=== PATIENT | female | born 1995 | race Caucasian/White ===

== ENCOUNTER 2017-04-06 23:18 | Emergency (ER) | payer MEDICAID, OTHER ==
[~2017-04-06] VITALS: Ht 172.7 cm; Wt 102.1 kg
[2017-04-06 23:34] VITALS: BP 137/75
[2017-04-07] MEDS ORDERED: OXYC5TAB92 GT (00:06)
[2017-04-07] MEDS ORDERED: KETOROLAC 60 MG/2 ML VIAL IM ONE (01:50)
[2017-04-07 02:24] VITALS: BP 127/84
== END 2017-04-07 02:24 | disposition home or self-care (01) ==
LOC: MED 23:18
DX: N39.0 Urinary tract infection, site not specified (principal); Z87.442 Personal history of urinary calculi; Z88.0 Allergy status to penicillin; Z88.1 Allergy status to other antibiotic agents; Z79.899 Other long term (current) drug therapy
CPT/HCPCS: 81002; 81025; 96372; 99283; J1885

== ENCOUNTER 2019-07-23 20:59 | Inpatient (IN) | payer MEDICAID, OTHER ==
[~2019-07-23] VITALS: Ht 170.2 cm; Wt 106.1 kg
[~2019-07-23 20:59] MED LIST: [UNRECOGNIZED DRUG - CODE] GT
[2019-07-23 21:37] VITALS: BP 140/69
--- NOTE | 2019-07-23 21:47 | NUR ---
PT AMBULATED TO LOBBY. URINE SPECIMINE PROVIDED.
--- NOTE | 2019-07-23 23:03 | NUR ---
PT AMBULATED TO BED #12
[2019-07-23] MEDS ORDERED: NACL 0.9% 1,000 ML IV ONE (23:20)
[2019-07-23] MEDS ORDERED: MORPHINE SULFATE 4 MG/ML SYR IVP ONE (23:20)
[2019-07-23] MEDS ORDERED: ONDANSETRON 4 MG/2 ML VIAL IVP ONE (23:20)
--- NOTE | 2019-07-23 23:30 | NUR ---
24 Y/O FEMALE PRESENTS TO ED, C/O ABDOMINAL PAIN 03/31. PT STATES BEING DX WITH GALLSTONES 3 MONTHS AGO. PAIN IS INTERMITTENT, WORSENING TODAY; DOES NOT RADIATE. PT FINISHED RX NORCO. PT C/O NAUSEA, NO VOMITING. DENIES DIARRHEA/CONSTIPATION. BS ACTIVE X4 QUADRANTS. ABDOMEN SOFT AND NONTENDER. PT VSS. ERDM AWARE. WILL CONTINUE TO MONITOR.
[2019-07-24 00:11] LABS: BASOPHILS % (AUTO) 0.6 % (0.0-2.0); EOSINOPHILS # (AUTO) 0.1 K/uL (0-0.4); EOSINOPHILS % (AUTO) 2.1 % (0.0-4.0); HEMATOCRIT 38.4 % (36-48); HEMOGLOBIN 12.6 g/dL (12.0-16.0); LYMPHOCYTES # (AUTO) 1.5 K/uL (2.5-16.5); LYMPHOCYTES % (AUTO) 24.8 % (20.5-51.1); MEAN CORPUSCULAR HEMOGLOBIN 26 pg (27-31); MEAN CORPUSCULAR HGB CONC 33 g/dL (33-37); MEAN CORPUSCULAR VOLUME 79.9 fL (80-94); MONOCYTES # (AUTO) 0.5 K/uL (0.8-1.0); MONOCYTES % (AUTO) 8.3 % (1.7-9.3); NEUTROPHILS # (AUTO) 3.9 K/uL (1.8-7.7); NEUTROPHILS % (AUTO) 64.2 % (42.2-75.2); PLATELET COUNT (AUTO) 346 K/uL (140-450); RED BLOOD CELL COUNT(AUTO) 4.81 MIL/uL (4.20-5.40); RED CELL DISTRIBUTION WIDTH 14.1 % (11.6-13.7)
[2019-07-24 00:41] LABS: ALBUMIN 3.5 g/dL (3.4-5.0); ANION GAP 17.4 (8-16); CARBON DIOXIDE 24.4 mmol/L (21-32); CREATININE 0.6 mg/dL (0.6-1.3); POTASSIUM 3.8 mmol/L (3.5-5.1); TOTAL BILIRUBIN 5.7 mg/dL (0.0-1.0)
[2019-07-24 00:45] LABS: APPEARANCE,URINE SL CLOUDY (CLEAR); BILIRUBIN,URINE 3+ (NEGATIVE); BLOOD, URINE NEGATIVE (NEGATIVE); COLOR,URINE ORANGE (YELLOW); LEUKOCYTE ESTERASE ,URINE TRACE (NEGATIVE); NITRITE, URINE NEGATIVE (NEGATIVE); PH,URINE 6.5 (5.0-9.0); UGLUCOSE NEGATIVE (NEGATIVE)
[2019-07-24] MEDS ORDERED: NACL 0.9% 1,000 ML IV ONE (00:50)
[2019-07-24] MEDS ORDERED: LACTULOSE 20 GM/30 ML UDC PO ONE (00:55)
[2019-07-24 01:12] LABS: RBC,URINE 0-5 /HPF (0-5); WBC,URINE 0-5 /HPF (0-5)
--- NOTE | 2019-07-24 04:30 | NUR ---
PT ADMITTED TO [facility] 120A. TRANSFERRED VIA GURNEY, STABLE CONDITION. REPORT GIVEN TO ROGERIO MENDEZ. TRANSFER OF CARE AT THIS TIME.
--- NOTE | 2019-07-24 04:30 | NUR ---
PATIENT ADMITTED TO THE UNIT FROM ED. PATIENT IS AWAKE, ALERT, ORIENTED AND AMBULATORY. PT ON ROOM AIR, NO S/S OF DISTRESS. PT REPORTS OF 5/10 RIGHT UPPER QUADRANT ABD PAIN BUT REFUSES PAIN MEDICATION AT THIS TIME. MILD JAUNDICE NOTED. BED LOWERED WITH CALL LIGHT WITHIN REACH. WILL CONTINUE TO MONITOR
[2019-07-24 04:50] VITALS: BP 138/87
[2019-07-24] MEDS ORDERED: PIPERACILLIN/TAZOBACTAM 2.25 GM in DEXTROSE 5% 50 ML IV SCH ×4 (05:00)
[2019-07-24] MEDS ORDERED: PIPERACILLIN/TAZOBACTAM 2.25 GM VIAL IV ONE (05:31)
[2019-07-24] MEDS: LACTATED RINGERS 1,000 ML IV SCH ×4 (06:08→21:38)
[2019-07-24] MEDS: MORPHINE SULFATE 2 MG/ML SYR IVP PRN ×3 (06:56→18:39)
--- NOTE | 2019-07-24 07:30 | NUR ---
PT REPORT GIVEN AT BEDSIDE. PT ENDORSED IN STABLE CONDITION
--- NOTE | 2019-07-24 07:31 | NUR ---
RECEIVED PT AAOX4. NO SOB NOTED. NO C/O PAIN AT THIS TIME. IV TO RT AC PATENT AND INTACT. CHEST CLEAR. DIMINISHED AIR ENTRY TO THE BASES. ABDOMEN SOFT, BOWEL SOUNDS PRESENT. NPO MAINTAINED. INSTRUCTED TO CALL FOR ASSISTANCE. CALL LIGHT WITHIN REACH,PT VERBALIZED UNDERSTANDING.
[2019-07-24 08:00] VITALS: BP 113/56
--- NOTE | 2019-07-24 08:38 | NUR ---
PATIENT HAS BEEN SCREENED AND CATEGORIZED LOW NUTRITION RISK. PATIENT WILL BE SEEN WITHIN 7 DAYS OF ADMISSION. 07/30/[address]
[2019-07-24] MEDS ORDERED: ENOXAPARIN 40 MG/0.4 ML SYR SUBQ SCH (09:00)
--- NOTE | 2019-07-24 09:00 | NUR ---
PT SEEN BY DR. LUBIN AND DR WHITAKER. NO NEW ORDERS GIVEN. NPO MAINTAINED.
--- NOTE | 2019-07-24 11:30 | NUR ---
PT SEEN BY WITH. NEW ORDERS GIVEN. DR. VELAZQUEZ FOR CONSULT. NPO MAINTAINED.
--- NOTE | 2019-07-24 12:25 | NUR ---
Late entry. Confirmed with RN that 0.9 NS IV completed at 0055. Another 0.9 NS IV completede at 0200.
[2019-07-24] MEDS: PIPERACILLIN/TAZOBACTAM 3.375 GM in DEXTROSE 5% 50 ML IV SCH ×3 (12:33→23:41)
--- NOTE | 2019-07-24 13:15 | NUR ---
[facility] Assessment/Discharge Plan Basic Screen: Yes Name: Crystal Sibley Home Relationship: mother Pre-Admission Living Arrangements: Lives with Other Other: boyfriend Prior ADL Independent Current Home Health Name/Tel: N/A Current DME/02 Name/Tel: N/A Current Hospice Name/Tel: N/A Current Dialysis Name/Tel: N/A Healthcare Decision Maker: Patient Advance Directive No Information Taught: Advance Directive Community Resources Person Taught: Patient Teaching Tools: Community Resources Computer Generated Print Verbal Factors Affecting Learning: None Participation Level: Active Evaluation: Gestures Understanding Verbalizes Understanding Educator: ALEKS Garcia Discipline: Case Mgt/Social Svcs Tentative Discharge Plan Summary: Patient is a 24 year old female admitted for acute cholecystitis. I met with patient at bedside. Patient alert and oriented x4. Patient lives at home with her boyfriend and plans to return home upon discharge. Patient's pcp is [facility] and she does not take any home medication. Patient's last appt with pcp was yesterday 07/23/19. She does not drive. She denied hx of mental health. She also denied alcohol/substance abuse. She has had good communication with attending MD and nursing staff. I provided her with education on [employer], www.[employer].org for community resources. Patient does not have any questions/concerns at this time. Sporting Goods Salesperson and/or Cable Supervisor will follow up as needed. Signature: ALEKS Garcia Date: Jul 24, 2019
--- NOTE | 2019-07-24 14:45 | NUR ---
PT SEEN BY DR. VELAZQUEZ WITH NEW ORDERS GIVEN. NPO MAINTAINED. CONSENT FOR ERCP SIGNED BY PT. PROCEDURE EXPLAINED BYB DR. VELAZQUEZ EARLIER, PT VERBALIZED UNDERSTANDING.
[2019-07-24 15:00] VITALS: BP 131/78
--- NOTE | 2019-07-24 15:38 | NUR ---
DC PLANNIN YRS OLD FEMALE PATIENT WAS ADMITTED FROM HOME WITH A DX OF ACUTE CHOLECYSTITIS PT HAS NO MEDICAL HISTORY. LFT'S SHOWED ELEVATED BILIRUBIN AND ABNORMAL LIVER FUNCTION, ULTRASOUND OF ABDOMEN SHOWED GALLSTONES. ADMINISTERED IVF ZOSYN ABX ,PAIN CONTROL AND NPO FOR POSSIBLE SURGERY. GI EVALUATION FOR ERCP WITH DR VELAZQUEZ. DC PLAN TO GO HOME WHEN STABLE AFTER SURGERY. CM TO FOLLOW. Addendum: 07/25/19 at 1141 by Bianca Sung CM DC PLANNING: DR DICKERSON PERFORMED ERCP WITH REMOVAL OF STONE AND BILIARY STENT PLACEMENT, AND RECOMMENDED PATIENT SHOULD HAVE EGD FOR REMOVAL OF BOTH STENTS IN 2 WEEKS. CONTINUE IVF AND ZOSYN ABX . SURGICAL CONSULT WITH DR LUBIN FOR LAP GENEVIEVE. CM TO FOLLOW Addendum: 07/27/19 at 1216 by Bianca Sung CM DC PLANNING: S/P ERCP , CONTINUE IV ABX ZOSYN , LAP GENEVIEVE PERFORMED BY DR APRIL LUBIN. CM TO FOLLOW
--- NOTE | 2019-07-24 15:55 | NUR ---
ERCP POSTPONED FOR TOMORROW. PT MADE AWARE. FULL LIQUIDS ORDERED BY MD, THEN NPO PMN. PT VERBALIZED UNDERSTANDING.
--- NOTE | 2019-07-24 17:55 | NUR ---
PT TOLERATED FULL LIQUIDS FAIRLY WELL. NO N&V NOTED.
--- NOTE | 2019-07-24 19:25 | NUR ---
RECIEVED PT. AAOX4 , DENIES ANY PAIN AT THIS TIME . DIET TOLERATED WELL - REMINDS NPO POST MN . IV SITE INTACT AND PATENT . PLAN OF CARE DISCUSSED AND VERBALIZED UNDERSTANDING - CALL LIGHT WITHIN REACH . ON SAFETY PRECAUTION PROTOCOL - REMINDS THE USE OF CALL LIGHT . FOR ERCP LORY AM . WITH CONSENT SIGNED ENDORSED BY AM NOD . WILL CONT. TO MONITOR.
--- NOTE | 2019-07-24 19:25 | NUR ---
PT RESTING. NO SOB NOTED. NO COMPLAINTS MADE. ENDORSED TO NEXT SHIFT NURSE FOR CONTINUITY OF CARE.
[2019-07-24 20:00] VITALS: BP 110/69
--- NOTE | 2019-07-24 22:00 | NUR ---
MADE ROUNDS , NO S/SXS OF ACUTE DISTRESS NOTED AT THIS TIME . CALL LIGHT WITHIN REACH.
[2019-07-25] VITALS: BP 100/62
--- NOTE | 2019-07-25 | NUR ---
MADE ROUNDS . NO COMPLAIN MADE AT THIS TIME . CALL LIGHT WITHIN REACH.
--- NOTE | 2019-07-25 02:00 | NUR ---
SLEEPING - CHEST RISE AND FALL EQUALLY - CALL LIGHT WITHIN REACH.
[2019-07-25 04:00] VITALS: BP 101/60
--- NOTE | 2019-07-25 04:00 | NUR ---
MADE ROUNDS , NO S/SXS OF ACUTE DISTRESS NOTED AT THIS TI8ME. CALL LIGHT WITHIN REACH
[2019-07-25] MEDS: MORPHINE SULFATE 2 MG/ML SYR IVP PRN ×3 (04:50→23:57)
[2019-07-25] MEDS: ONDANSETRON 4 MG/2 ML VIAL IVP PRN ×3 (04:50→17:15)
[2019-07-25] MEDS: PIPERACILLIN/TAZOBACTAM 3.375 GM in DEXTROSE 5% 50 ML IV SCH ×4 (05:02→23:58)
--- NOTE | 2019-07-25 06:00 | NUR ---
MADE ROUNDS . NO OMPLAIN MADE . MAINTAINED NPO.
--- NOTE | 2019-07-25 07:11 | NUR ---
ENDORSED TO AM SHIFT FOR CONT. OF CARE - FOR OR TODAY .
--- NOTE | 2019-07-25 07:15 | NUR ---
RECEIVED BEDSIDE REPORT FROM NIGHTSHIFT NURSE. PT RESTING IN BED UPON ARRIVAL. ABLE TO MAKE NEEDS KNOWN. RESPIRATIONS EVEN AND UNLABORED WITH NO SOB OR RESPIRATORY DISTRESS. SKIN WARM AND DRY TO TOUCH. SAFETY MEASURES IN PLACE. WILL CONTINUE TO MONITOR
[2019-07-25 08:00] VITALS: BP 117/70
[2019-07-25] MEDS ORDERED: MIDAZOLAM 2 MG/2 ML VIAL ONE (08:13)
[2019-07-25] MEDS ORDERED: fentaNYL 0.05 MG/ML VIAL ONE (08:13)
[2019-07-25] MEDS ORDERED: PROPOFOL 200 MG/20 ML VIAL IV ONE (08:24)
[2019-07-25] MEDS: LACTATED RINGERS 1,000 ML IV SCH ×2 (10:00→21:02)
[2019-07-25] MEDS: MORPHINE SULFATE 4 MG/ML SYR IVP PRN ×2 (10:10→14:19)
--- NOTE | 2019-07-25 10:10 | NUR ---
PT CAME BACK FROM OR. RECEIVED REPORT FROM OR NURSE. PT RESTING IN BED. ABLE TO MAKE NEEDS KNOWN. RESPIRATIONS EVEN AND UNLABORED WITH NO SOB OR RESPIRATORY DISTRESS. SKIN WARM AND DRY TO TOUCH. SAFETY MEASURES IN PLACE. WILL CONTINUE TO MONITOR.
--- NOTE | 2019-07-25 10:11 | NUR ---
PT CALLED AND COMPLAINED OF PAIN. PRN PAIN MEDICATION ADMINISTERED PER MD ORDER. PT TOLERATED WELL. MEDICATION EDUCATION PERFORMED. PT VERBALIZED UNDERSTANDING. SAFETY MEASURES IN PLACE. WILL CONTINUE TO MONITOR.
--- NOTE | 2019-07-25 10:22 | NUR ---
PT CALLED AND COMPLAINED OF NAUSEA. PRN ANTI-NAUSEA MEDICATION ADMINISTERED PRESCRIBED PER MD ORDER. MEDICATION EDUCATION PERFORMED. PT TOLERATED WELL. PT VERBALIZED UNDERSTANDING. SAFETY MEASURES IN PLACE.
[2019-07-25 12:00] VITALS: BP 127/82
--- NOTE | 2019-07-25 12:15 | NUR ---
PT ASLEEP IN BED. RESPONSIVE TO VERBAL AND TACTILE STIMULI. ABLE TO MAKE NEEDS KNOWN. RESPIRATIONS EVEN AND UNLABORED WITH NO SOB OR RESPIRATORY DISTRESS. SKIN WARM AND DRY TO TOUCH. SAFETY MEASURES IN PLACE. WILL CONTINUE TO MONITOR.
--- NOTE | 2019-07-25 14:19 | NUR ---
ADMINISTERED MEDICATION PRESCRIBED PER MD ORDER. PT TOLERATED WELL. MEDICATION EDUCATION PERFORMED. PT VERBALIZED UNDERSTANDING AND COULD TEACH BACK. WILL CONTINUE TO MONITOR
--- NOTE | 2019-07-25 15:40 | NUR ---
PT WATCHING VIDEOS ON HER PHONE WHILE IN BED. FAMILY AT BEDSIDE. ABLE TO MAKE NEEDS KNOWN. RESPIRATIONS EVEN AND UNLABORED WITH NO SOB OR RESPIRATORY DISTRESS. SKIN WARM AND DRY TO TOUCH. SAFETY MEASURES IN PLACE. NO COMPLAINTS OR CONCERNS AT THIS TIME. WILL CONTINUE TO MONITOR
[2019-07-25 16:00] VITALS: BP 113/67
--- NOTE | 2019-07-25 16:17 | NUR ---
HOURLY ROUNDING. PT RESTING IN BED WITH FAMILY AT BEDSIDE. ABLE TO MAKE NEEDS KNOWN. RESPIRATIONS EVEN AND UNLABORED WITH NO SOB OR RESPIRATORY DISTRESS. SKIN WARM AND DRY TO TOUCH. SAFETY MEASURES IN PLACE. WILL CONTINUE TO MONITOR.
[2019-07-25] MEDS: LORazepam 2 MG/ML VIAL IVP PRN (17:14)
--- NOTE | 2019-07-25 17:40 | NUR ---
ADMINISTERED MEDICATION PRESCRIBED PER MD ORDER. PT TOLERATED WELL. MEDICATION EDUCATION PERFORMED. PT VERBALIZED UNDERSTANDING AND COULD TEACH BACK. SAFETY MEASURES IN PLACE. WILL CONTINUE TO MONITOR
--- NOTE | 2019-07-25 18:36 | NUR ---
PT CALLED AND COMPLAINED OF SEVERE PAIN. PRN PAIN MEDICATION ADMINISTERED PRESCRIBED PER MD ORDER. PT TOLERATED WELL. MEDICATION EDUCATION PERFORMED. PT VERBALIZED UNDERSTANDING AND COULD TEACH BACK. SAFETY MEASURES IN PLACE. WILL CONTINUE TO MONITOR
--- NOTE | 2019-07-25 19:25 | NUR ---
ENDORSED TO NIGHTSHIFT NURSE. PT RESTING IN BED UPON ARRIVAL. ABLE TO MAKE NEEDS KNOWN. RESPIRATIONS EVEN AND UNLABORED WITH NO SOB OR RESPIRATORY DISTRESS. SKIN WARM AND DRY TO TOUCH. SAFETY MEASURES IN PLACE. PT IS STABLE.
--- NOTE | 2019-07-25 19:30 | NUR ---
RECEIVED PATIENT FROM AM NURSE IN STABLE CONDITION. MED SURG PATIENT. A/O X4, ABLE TO MAKE NEEDS KNOWN. RESPIRATIONS EVEN, UNLABORED. SKIN WARM, DRY TO TOUCH. IV SITE TO RIGHT AC 22G INTACT/PATENT, IV FLUIDS INFUSING WELL. NO C/O PAIN. NO S/SX ACUTE DISTRESS NOTED. BED IN LOWEST POSITION. SIDE RAILS UP X2. CALL LIGHT WITHIN REACH. WILL CONTINUE TO MONITOR.
--- NOTE | 2019-07-25 21:30 | NUR ---
PATIENT RESTING COMFORTABLY IN BED. NO C/O PAIN AT THIS TIME. NO S/SX ACUTE DISTRESS. IV FLUIDS INFUSING WELL. CALL LIGHT WITHIN REACH. WILL CONTINUE TO MONITOR.
[2019-07-25] MEDS: ACETAMINOPHEN 325 MG TAB PO PRN (21:34)
--- NOTE | 2019-07-25 21:34 | NUR ---
PATIENT C/O ACHING ABDOMINAL PAIN 08/31. MEDICATED ORDERED. CALL LIGHT WITHIN REACH. WILL CONTINUE TO MONITOR.
--- NOTE | 2019-07-25 22:34 | NUR ---
REASSESSED PATIENT'S PAIN LEVEL, VERBALIZED PAIN RELIEF AT 0/10. CALL LIGHT WITHIN REACH. WILL CONTINUE TO MONITOR.
[2019-07-26] VITALS: BP 115/55
--- NOTE | 2019-07-26 01:08 | NUR ---
PATIENT ASLEEP. NO C/O PAIN. NO S/SX ACUTE DISTRESS. DUE MEDS GIVEN. IV INFUSING WELL. CALL LIGHT WITHIN REACH. WILL CONTINUE TO MONITOR.
--- NOTE | 2019-07-26 03:10 | NUR ---
CONTINUES IN STABLE CONDITION. NO C/O PAIN. NO S/SX ACUTE DISTRESS. ALL NEEDS ANTICIPATED AND MET. CALL LIGHT WITHIN REACH. WILL CONTINUE TO MONITOR.
--- NOTE | 2019-07-26 04:26 | NUR ---
ASLEEP. NO S/SX ACUTE DISTRESS. NO C/O PAIN. PATIENT IN STABLE CONDITION. RESPIRATIONS EVEN, UNLABORED. IV FLUIDS INFUSING WELL. ALL NEEDS ATTENDED TO. CALL LIGHT WITHIN REACH. WILL CONTINUE TO MONITOR.
--- NOTE | 2019-07-26 05:15 | NUR ---
PT SIGNED CONSENT FOR THE SURGERY TOMORROW. PT VERBALIZED UNDERSTANDING OF THE PROCEDURE TO BE DONE.
[2019-07-26] MEDS: MORPHINE SULFATE 2 MG/ML SYR IVP PRN (05:27)
--- NOTE | 2019-07-26 05:27 | NUR ---
PATIENT C/O ACHING ABDOMINAL PAIN 01/28. MEDICATED ORDERED. CALL LIGHT WITHIN REACH. WILL CONTINUE TO MONITOR.
[2019-07-26] MEDS: LACTATED RINGERS 1,000 ML IV SCH ×3 (05:39→20:02)
[2019-07-26] MEDS: PIPERACILLIN/TAZOBACTAM 3.375 GM in DEXTROSE 5% 50 ML IV SCH ×3 (05:46→17:42)
--- NOTE | 2019-07-26 06:27 | NUR ---
REASSESSED PAIN LEVEL AT 2/10, TOLERABLE PAIN LEVEL FOR PATIENT. PATIENT CONTINUES IN STABLE CONDITION. NO S/SX ACUTE DISTRESS. CALL LIGHT WITHIN REACH. WILL CONTINUE TO MONITOR.
--- NOTE | 2019-07-26 07:19 | NUR ---
ENDORSED PATIENT TO AM SHIFT NURSE IN STABLE CONDITION.
[2019-07-26 08:00] VITALS: BP 135/80
[2019-07-26] MEDS: MORPHINE SULFATE 4 MG/ML SYR IVP PRN ×3 (09:34→20:04)
--- NOTE | 2019-07-26 09:34 | NUR ---
PT CALLED AND COMPLAINED OF PAIN. PRN PAIN MEDICATION ADMINISTERED PRESCRIBED PER MD ORDER. PT TOLERATED WELL. PT VERBALIZED UNDERSTANDING. WILL CONTINUE TO MONITOR
--- NOTE | 2019-07-26 09:45 | NUR ---
PT RESTING IN BED WITH FAMILY AT BEDSIDE. ABLE TO MAKE NEEDS KNOWN. SKIN WARM AND DRY TO TOUCH. RESPIRATIONS EVEN AND UNLABORED WITH NO SOB OR RESPIRATORY DISTRESS. SAFETY MEASURES IN PLACE. WILL CONTINUE TO MONITOR.
[2019-07-26 10:28] LABS: BASOPHILS % (AUTO) 0.9 % (0.0-2.0); EOSINOPHILS # (AUTO) 0.2 K/uL (0-0.4); HEMATOCRIT 37.2 % (36-48); HEMOGLOBIN 12.1 g/dL (12.0-16.0); LYMPHOCYTES # (AUTO) 1.9 K/uL (2.5-16.5); LYMPHOCYTES % (AUTO) 37.8 % (20.5-51.1); MEAN CORPUSCULAR HEMOGLOBIN 26 pg (27-31); MEAN CORPUSCULAR HGB CONC 33 g/dL (33-37); MONOCYTES # (AUTO) 0.4 K/uL (0.8-1.0); MONOCYTES % (AUTO) 7.8 % (1.7-9.3); NEUTROPHILS # (AUTO) 2.4 K/uL (1.8-7.7); NEUTROPHILS % (AUTO) 49.5 % (42.2-75.2); PLATELET COUNT (AUTO) 276 K/uL (140-450); RED BLOOD CELL COUNT(AUTO) 4.65 MIL/uL (4.20-5.40); WHITE BLOOD COUNT (AUTO) 4.9 K/uL (4.8-10.8)
[2019-07-26 10:55] LABS: ANION GAP 13.4 (8-16); CARBON DIOXIDE 26.4 mmol/L (21-32); CREATININE 0.7 mg/dL (0.6-1.3); POTASSIUM 3.8 mmol/L (3.5-5.1); TOTAL BILIRUBIN 2.3 mg/dL (0.0-1.0)
--- NOTE | 2019-07-26 11:50 | NUR ---
PT ASLEEP IN BED. RESPONSIVE TO VERBAL AND TACTILE STIMULI. SKIN WARM AND DRY TO TOUCH. RESPIRATIONS EVEN AND UNLABORED WITH NO SOB OR RESPIRATORY DISTRESS. SAFETY MEASURES IN PLACE. WILL CONTINUE TO MONITOR.
--- NOTE | 2019-07-26 12:37 | NUR ---
PT EATING LUNCH WITH FAMILY AT BEDSIDE. ABLE TO MAKE NEEDS KNOWN. SKIN WARM AND DRY TO TOUCH. RESPIRATIONS EVEN AND UNLABORED WITH NO SOB OR RESPIRATORY DISTRESS. SAFETY MEASURES IN PLACE. WILL CONTINUE TO MONITOR.
[2019-07-26] MEDS: LORazepam 2 MG/ML VIAL IVP PRN ×2 (13:48→20:03)
--- NOTE | 2019-07-26 13:48 | NUR ---
PT CALLED AND COMPLAINED OF PAIN. PRN PAIN MEDICATION ADMINISTERED PRESCRIBED PER MD ORDER. PT TOLERATED WELL. MEDICATION EDUCATION PERFORMED. PT VERBALIZED UNDERSTANDING. SAFETY MEASURES IN PLACE. WILL CONTINUE TO MONITOR
--- NOTE | 2019-07-26 15:50 | NUR ---
HOURLY ROUNDING. PT RESTING IN BED. ABLE TO MAKE NEEDS KNOWN. SKIN WARM AND DRY TO TOUCH. RESPIRATIONS EVEN AND UNLABORED WITH NO SOB OR RESPIRATORY DISTRESS. SAFETY MEASURES IN PLACE. WILL CONTINUE TO MONITOR.
[2019-07-26 16:00] VITALS: BP 138/79
--- NOTE | 2019-07-26 17:42 | NUR ---
ADMINISTERED MEDICATION PRESCRIBED PER MD ORDER. PT TOLERATED WELL. MEDICATION EDUCATION PERFORMED. PT VERBALIZED UNDERSTANDING. SAFETY MEASURES IN PLACE.
--- NOTE | 2019-07-26 19:20 | NUR ---
ENDORSED TO NIGHTSHIFT NURSE. PT RESTING IN BED. RESPIRATIONS EVEN AND UNLABORED WITH NO SOB OR RESPIRATORY DISTRESS. SKIN WARM AND DRY TO TOUCH. SAFETY MEASURES IN PLACE. PT IS STABLE
--- NOTE | 2019-07-26 19:25 | NUR ---
RECEIVED BEDSIDE REPORT FROM AM SHIFT NURSE. PATIENT IS STANDING UP AND AMBULATING TO BATHROOM AT THIS TIME. NO SOB OR DISTRESS NOTED. ON ROOM AIR. IV ACCESS ON RIGHT AC 22 GAUGE, PATENT AND INTACT, INFUSING WELL. SKIN IS INTACT. BOARD UPDATED. BED IN LOW, SAFETY PRECAUTIONS IN PLACE. CALL LIGHT PLACED WITHIN PATIENT REACH. INITIAL ASSESSMENT DONE.WILL CONTINUE TO MONITOR PATIENT.
--- NOTE | 2019-07-26 20:05 | NUR ---
PRN MORPHINE GIVEN AT THIS TIME FOR SEVERE PAIN. NO DISTRESS NOTED. WILL CONTINUE TO MONITOR PATIENT.
--- NOTE | 2019-07-26 22:45 | NUR ---
ROUNDS DONE AT THIS TIME. PATIENT IS RESTING WITH EYES CLOSED. NO DISTRESS NOTED. WILL CONTINUE TO MONITOR PATIENT.
[2019-07-27] MEDS: PIPERACILLIN/TAZOBACTAM 3.375 GM in DEXTROSE 5% 50 ML IV SCH ×4 (00:08→18:12)
[2019-07-27 00:30] VITALS: BP 114/68
--- NOTE | 2019-07-27 00:30 | NUR ---
VITALS TAKEN AT THIS TIME. NO DISTRESS NOTED. CALL LIGHT WITHIN PATIENT REACH. WILL CONTINUE TO MONITOR PATIENT.
[2019-07-27] MEDS: LORazepam 2 MG/ML VIAL IVP PRN (00:44)
--- NOTE | 2019-07-27 03:05 | NUR ---
ROUNDS DONE AT THIS TIME. PATIENT IS RESTING WITH EYES CLOSED. NO DISTRESS NOTED. WILL CONTINUE TO MONITOR PATIENT.
--- NOTE | 2019-07-27 05:20 | NUR ---
ROUNDS DONE AT THIS TIME. PATIENT IS RESTING WITH EYES CLOSED. NO DISTRESS NOTED. WILL CONTINUE TO MONITOR PATIENT.
--- NOTE | 2019-07-27 07:03 | NUR ---
ENDORSED TO AM SHIFT NURSE FOR CONTINUITY OF CARE. PATIENT IS STABLE. CALL LIGHT WITHIN PATIENT REACH.
--- NOTE | 2019-07-27 07:06 | NUR ---
RECEIVED REPORT FROM NIGHT NURSE, PT IS IN PAIN AND WILL MEDICATE ONCE VITAL SIGNS OBTAINED. CALL LIGHT WITHIN REACH.
[2019-07-27 07:35] LABS: BASOPHILS % (AUTO) 0.9 % (0.0-2.0); EOSINOPHILS # (AUTO) 0.2 K/uL (0-0.4); EOSINOPHILS % (AUTO) 4.2 % (0.0-4.0); HEMATOCRIT 38.3 % (36-48); HEMOGLOBIN 12.6 g/dL (12.0-16.0); LYMPHOCYTES # (AUTO) 1.9 K/uL (2.5-16.5); LYMPHOCYTES % (AUTO) 37.1 % (20.5-51.1); MEAN CORPUSCULAR HEMOGLOBIN 26 pg (27-31); MEAN CORPUSCULAR HGB CONC 33 g/dL (33-37); MEAN CORPUSCULAR VOLUME 80.3 fL (80-94); MONOCYTES # (AUTO) 0.5 K/uL (0.8-1.0); MONOCYTES % (AUTO) 9.8 % (1.7-9.3); NEUTROPHILS # (AUTO) 2.5 K/uL (1.8-7.7); PLATELET COUNT (AUTO) 287 K/uL (140-450); RED BLOOD CELL COUNT(AUTO) 4.78 MIL/uL (4.20-5.40); RED CELL DISTRIBUTION WIDTH 14.2 % (11.6-13.7); WHITE BLOOD COUNT (AUTO) 5.2 K/uL (4.8-10.8)
[2019-07-27] MEDS: MORPHINE SULFATE 4 MG/ML SYR IVP PRN ×2 (07:43→15:28)
--- NOTE | 2019-07-27 07:49 | NUR ---
GAVE MORPHINE FOR SEVER ABDOMEN PAIN OF 8/10. PT POSITION CHANGE TO LESSEN THE PAIN. CALL LIGHT WITHIN REACH.
[2019-07-27 07:51] LABS: ALBUMIN 3.2 g/dL (3.4-5.0); ANION GAP 10.4 (8-16); CARBON DIOXIDE 29.9 mmol/L (21-32); CREATININE 0.8 mg/dL (0.6-1.3); POTASSIUM 4.3 mmol/L (3.5-5.1); TOTAL BILIRUBIN 1.9 mg/dL (0.0-1.0)
[2019-07-27 08:00] VITALS: BP 138/83
[2019-07-27] MEDS: LACTATED RINGERS 1,000 ML IV SCH ×2 (09:56→21:39)
[2019-07-27] MEDS ORDERED: BUPIVACAINE-MPF/EPI 0.25% 30 ML VIAL INJ ONE (10:52)
[2019-07-27] MEDS ORDERED: LIDOCAINE 1% 500 MG/50 ML VIAL ONE (10:56)
[2019-07-27] MEDS ORDERED: HYDROmorphone PFS 2 MG/ML SYR ONE ×2 (10:58→13:04)
[2019-07-27] MEDS ORDERED: fentaNYL 0.05 MG/ML VIAL ONE (10:58)
[2019-07-27] MEDS ORDERED: SUCCINYLCHOLINE CHLORIDE 200 MG/10 ML VIAL IVP ONE (11:18)
[2019-07-27] MEDS ORDERED: ONDANSETRON 4 MG/2 ML VIAL ONE (11:18)
[2019-07-27] MEDS ORDERED: PROPOFOL 200 MG/20 ML VIAL IV ONE (11:18)
[2019-07-27] MEDS ORDERED: DESFLURANE 240 ML BTL INH ONE (11:18)
[2019-07-27] MEDS ORDERED: DEXAMETHASONE 4 MG/ML VIAL ONE (11:18)
[2019-07-27] MEDS ORDERED: KETOROLAC 30 MG/ML VIAL ONE (11:18)
--- NOTE | 2019-07-27 12:11 | NUR ---
PT OFF UNIT IN SURGERY.
[2019-07-27] MEDS ORDERED: ONDANSETRON 4 MG/2 ML VIAL IVP PRN (13:00)
[2019-07-27] MEDS: HYDROmorphone 1 MG/ML AMP IVP PRN ×2 (13:06→13:16)
--- NOTE | 2019-07-27 13:40 | NUR ---
PT BACK IN THE ROOM FROM SURGERY, PT IS DROWSY AND PAIN 8/10, WILL MONITOR VITALS SIGNS Q15M, RESPIRATION ARE EVEN AND UNLABORED, FAMILY MEMBER AT BEDSIDE. CALL LIGHT WITHIN REACH.
[2019-07-27 16:00] VITALS: BP 140/89
[2019-07-27] MEDS: ONDANSETRON 4 MG/2 ML VIAL IVP PRN (16:22)
--- NOTE | 2019-07-27 16:27 | NUR ---
gave pt ZOFRAN FOR NAUSEA. PT IS STABLE, PT TOLERATED IT WELL, CALL LIGHT WITHIN REACH.
--- NOTE | 2019-07-27 18:00 | NUR ---
GAVE ORDERED MEDICATION, PT IS STABLE, FAMILY MEMBER IN THE ROOM, WILL ENDORSE TO NIGHT NURSE FOR CONTINUITY OF CARE.
--- NOTE | 2019-07-27 19:10 | NUR ---
RECD. RESTING IN BED, AWAKE, A/OX4. RESPIRATION EVEN AND UNLABORED. IV OF LR AT 100 ML/HR INFUSING RIGHT AC G 22. S/P LAP CHOLECYSTECTOMY, INCISION IN THE ABDOMEN (4) OPEN TO AIR ALL DRY AND INTACT. AMBULATING, TOLERATING CARDIAC DIET. VOIDING WELL. NOT YET PASSING GAS, ENCOURAGED TO AMBULATE MORE. PLAN OF CARE FOR THE SHIFT DISCUSSED. VERBALIZED UNDERSTANDING. PAIN IN THE SITE 07/31, STATED TOLERABLE. WILL MEDICATE ORDERED. FAMILY AT THE BEDSIDE.
[2019-07-27 20:00] VITALS: BP 113/53
--- NOTE | 2019-07-27 20:00 | NUR ---
Patient's Plan of Care was discussed and reviewed with BORING MACHINE OPERATOR HELPER: DESHAUN DOE
[2019-07-27] MEDS: MORPHINE SULFATE 2 MG/ML SYR IVP PRN (21:01)
[2019-07-27] MEDS: HYDROcodone/APAP 5/325 MG 1 TAB TAB PO PRN (22:23)
[2019-07-28] MEDS: LORazepam 2 MG/ML VIAL IVP PRN ×2 (00:10→09:53)
[2019-07-28] MEDS: PIPERACILLIN/TAZOBACTAM 3.375 GM in DEXTROSE 5% 50 ML IV SCH ×2 (00:12→06:37)
[2019-07-28] MEDS: LACTATED RINGERS 1,000 ML IV SCH ×2 (00:20→07:39)
--- NOTE | 2019-07-28 00:20 | NUR ---
WITH ANXIETY, MEDICATED WITH ATIVAN PER MD ORDER BY VANESSA HILL.
--- NOTE | 2019-07-28 00:50 | NUR ---
NO ANXIETY, SLEEPING COMFORTABLY IN BED.
--- NOTE | 2019-07-28 04:00 | NUR ---
STILL SLEEPING COMFORTABLY IN BED.
[2019-07-28] MEDS: HYDROcodone/APAP 5/325 MG 1 TAB TAB PO PRN (05:41)
--- NOTE | 2019-07-28 05:41 | NUR ---
COMPLAINED OF ABDOMINAL PAIN, 12/29. WANTS MORPHINE 2 MG. BUT BP IN THE LOW SIDE 105/54. MEDICATED WITH NORCO ORDERED.
--- NOTE | 2019-07-28 07:00 | NUR ---
STILL SLEEPING COMFORTABLY IN BED, CONDITION REMAIN STABLE.
--- NOTE | 2019-07-28 07:01 | NUR ---
RECEIVED BEDSIDE REPORT FROM KEEPER HELPER NURSE. PATIENT IS AWAKE, ALERT AND ORIENTEDX4. NO SIGNS OF DISTRESS ON RA. SKIN IS INTACT. IV ON R AC 20G INFUSING LR AT 100. CLEAN, DRY AND INTACT. AMBULATORY. CONTINENT. ABLE TO MAKE NEEDS KNOWN. BED IN LOW POSITION. CALL LIGHT WITHIN REACH. WILL CONTINUE TO MONITOR THE PATIENT
[2019-07-28 07:58] LABS: BASOPHILS % (AUTO) 0.4 % (0.0-2.0); EOSINOPHILS # (AUTO) 0.1 K/uL (0-0.4); EOSINOPHILS % (AUTO) 0.8 % (0.0-4.0); HEMOGLOBIN 11.7 g/dL (12.0-16.0); LYMPHOCYTES # (AUTO) 2.7 K/uL (2.5-16.5); LYMPHOCYTES % (AUTO) 23.7 % (20.5-51.1); MEAN CORPUSCULAR HEMOGLOBIN 26 pg (27-31); MEAN CORPUSCULAR HGB CONC 33 g/dL (33-37); MONOCYTES # (AUTO) 0.9 K/uL (0.8-1.0); MONOCYTES % (AUTO) 7.7 % (1.7-9.3); NEUTROPHILS # (AUTO) 7.5 K/uL (1.8-7.7); NEUTROPHILS % (AUTO) 67.4 % (42.2-75.2); PLATELET COUNT (AUTO) 280 K/uL (140-450); RED CELL DISTRIBUTION WIDTH 13.9 % (11.6-13.7); WHITE BLOOD COUNT (AUTO) 11.2 K/uL (4.8-10.8)
[2019-07-28 08:00] VITALS: BP 122/68
[2019-07-28] MEDS: MORPHINE SULFATE 4 MG/ML SYR IVP PRN (08:42)
--- NOTE | 2019-07-28 08:50 | NUR ---
ADMINISTERED PRN PAIN MED. PATIENT TOLERATED WELL. EDUCATED ON SIDE EFFECTS. WILL CONTINUE TO MONITOR THE PATIENT
[2019-07-28 09:33] LABS: ALBUMIN 2.8 g/dL (3.4-5.0); ANION GAP 13.3 (8-16); CARBON DIOXIDE 26.3 mmol/L (21-32); CREATININE 0.8 mg/dL (0.6-1.3); POTASSIUM 3.6 mmol/L (3.5-5.1); TOTAL BILIRUBIN 1.3 mg/dL (0.0-1.0)
[2019-07-28] MEDS: ACETAMINOPHEN 325 MG TAB PO PRN (09:53)
--- NOTE | 2019-07-28 09:53 | NUR ---
ADMINISTERED PRN PAIN MED AND ANXIETY MED. PATIENT FEELS ANXIOUS. EDUCATED ON MEDS. WILL CONTINUE TO MONITOR THE PATIENT.
--- NOTE | 2019-07-28 11:10 | NUR ---
PATIENT IN NO DISTRESS. WILL CONTINUE TO MONITOR THE PATIENT
[2019-07-28] MEDS ORDERED: HYDR-5122 PO (12:06)
--- NOTE | 2019-07-28 12:45 | NUR ---
EDUCATED PATIENT ON DISEASE PROCESS, ABN S/SX, WHEN TO GO TO THE ER, EDUCATED ON MEDS, GAVE PRESCRIPTION, EDUCATED ON FOLLOW UP W DR BLACK AND DR WHITAKER, GAVE DR ADDRESS AND NUMBERS TO MAKE AN APPOINTMENT WITHIN A WEEK. DR BLACK NEEDS TO REMOVE GI STENTS, PATIENT IS AWARE. TOOK PHOTO OF WOUNDS, PATIENT EDUCATED ON WOUND CARE AND S/SX OF INFECTION. PATIENT AWARE NOT TO LIFT WITHOUT DR WHITAKER APPROVAL. IV REMOVED, TIP INTACT. PATIENT CHANGED AND PICKED UP WITH TO GO HOME. PATIENT LEFT IN STABLE CONDITION. Addendum: 07/28/19 at 1311 by Nina Borden RN PATIENT REFUSED PNA AND FLU VACCINE
== END 2019-07-28 12:45 | disposition home or self-care (01) | DRG 263 ==
LOC: MED 20:59 → MTU 07-24 03:42
PROVIDERS: ADMIT Internal Medicine Pulmonary Disease; ATTEND Internal Medicine Pulmonary Disease
PROC: 0FC98ZZ Extirpation of Matter from Common Bile Duct, Via Natural or Artificial Opening Endoscopic (ICD-10-PCS; 2019-07-25)
PROC: 0FB98ZZ Excision of Common Bile Duct, Via Natural or Artificial Opening Endoscopic (ICD-10-PCS; 2019-07-25)
PROC: 0F798DZ Dilation of Common Bile Duct with Intraluminal Device, Via Natural or Artificial Opening Endoscopic (ICD-10-PCS; 2019-07-25)
PROC: 0F7D8DZ Dilation of Pancreatic Duct with Intraluminal Device, Via Natural or Artificial Opening Endoscopic (ICD-10-PCS; 2019-07-25)
PROC: 0FT44ZZ Resection of Gallbladder, Percutaneous Endoscopic Approach (ICD-10-PCS; principal; 2019-07-27 11:00)
DX: K80.63 Calculus of gallbladder and bile duct with acute cholecystitis with obstruction (principal); K76.0 Fatty (change of) liver, not elsewhere classified; E66.8 Other obesity; E66.9 Obesity, unspecified; R74.0 Nonspecific elevation of levels of transaminase and lactic acid dehydrogenase [LDH]; Z79.899 Other long term (current) drug therapy; Z68.36 Body mass index [BMI] 36.0-36.9, adult
CPT/HCPCS: 36415; 76705; 80053; 81001; 82140; 82374; 83605; 83690; 85025; 86886; 86900; 86901; 87040; 87081; 87086; 96361; 96374; 99285; J0330; J1100; J1170; J1650; J1885; J2001; J2060; J2250; J2270; J2405; J2543; J2704; J3010; J3490; J7030; J7060; J7120; Q0092

== ENCOUNTER 2019-10-24 16:30 | Inpatient (IN) | payer OTHER ==
[~2019-10-24] VITALS: Ht 170.2 cm; Wt 106.1 kg
[~2019-10-24 16:30] MED LIST changes: +HYDR-5122 PO; -[UNRECOGNIZED DRUG - CODE] GT
[2019-10-24 16:35] VITALS: BP 109/60
--- NOTE | 2019-10-24 16:46 | NUR ---
PT AMBULATED TO ER BED 07
[2019-10-24] MEDS ORDERED: NACL 0.9% 1,000 ML IV SCH (17:00)
[2019-10-24] MEDS ORDERED: KETOROLAC 30 MG/ML VIAL IVP ONE (17:00)
[2019-10-24] MEDS ORDERED: ONDANSETRON 4 MG/2 ML VIAL IVP ONE (17:00)
--- NOTE | 2019-10-24 17:22 | NUR ---
24F C/O INTERMITENT EPIGASTRIC PAIN X 1 MONTH,DIARRHEA X 15 DAYS, FEVER ,N/V, DIZZINESS X TODAY. TOOK TYLENOL 2 HOURS AGO. TEMP 96.4 AT THIS TIME. LMP UNKNOWN DUE TO PATIENT BEING ON IUD CONTROL. NO LOC. PATIENT STATES THEY TAKE NORCO Q DAILY, AND IS TAKING AMOXCICILLIN ABX X 3 DAYS. MED HX: 2 STENTS IN LIVER, GALL BLADDER REMOVAL IN JULY 2019
[2019-10-24 17:27] LABS: APPEARANCE,URINE CLEAR (CLEAR); BILIRUBIN,URINE 1+ (NEGATIVE); BLOOD, URINE NEGATIVE (NEGATIVE); COLOR,URINE YELLOW (YELLOW); LEUKOCYTE ESTERASE ,URINE NEGATIVE (NEGATIVE); NITRITE, URINE NEGATIVE (NEGATIVE); UGLUCOSE NEGATIVE (NEGATIVE)
[2019-10-24 17:30] LABS: BASOPHILS # (AUTO) 0.1 K/uL (0.00-0.22); BASOPHILS % (AUTO) 0.9 % (0.0-2.0); EOSINOPHILS # (AUTO) 0.1 K/uL (0-0.4); EOSINOPHILS % (AUTO) 0.7 % (0.0-4.0); HEMOGLOBIN 13.9 g/dL (12.0-16.0); LYMPHOCYTES # (AUTO) 1.6 K/uL (2.5-16.5); LYMPHOCYTES % (AUTO) 14.1 % (20.5-51.1); MEAN CORPUSCULAR HEMOGLOBIN 27 pg (27-31); MEAN CORPUSCULAR HGB CONC 33 g/dL (33-37); MEAN CORPUSCULAR VOLUME 80.6 fL (80-94); MONOCYTES # (AUTO) 0.6 K/uL (0.8-1.0); MONOCYTES % (AUTO) 5.2 % (1.7-9.3); NEUTROPHILS # (AUTO) 8.9 K/uL (1.8-7.7); NEUTROPHILS % (AUTO) 79.1 % (42.2-75.2); PLATELET COUNT (AUTO) 337 K/uL (140-450); RED BLOOD CELL COUNT(AUTO) 5.21 MIL/uL (4.20-5.40); RED CELL DISTRIBUTION WIDTH 13.9 % (11.6-13.7); WHITE BLOOD COUNT (AUTO) 11.2 K/uL (4.8-10.8)
--- NOTE | 2019-10-24 17:31 | NUR ---
IV PATENT. TORADOL AND ZOFRAN GIVEN FOR NAUSEA AND PAIN. NO FURTHER NEEDS AT THIS TIME. BED AT LOWEST AND LOCKED, RAILS UP X 1.
[2019-10-24 17:46] LABS: ALBUMIN 3.8 g/dL (3.4-5.0); CARBON DIOXIDE 26.6 mmol/L (21-32); CREATININE 0.8 mg/dL (0.6-1.3); POTASSIUM 3.6 mmol/L (3.5-5.1); TOTAL BILIRUBIN 1.4 mg/dL (0.0-1.0)
--- NOTE | 2019-10-24 18:13 | NUR ---
PT STATES LESSENING ARM PAIN FROM 01/28 TO 08/31 AND TOLERABLE NO FURTHER NEEDS AT THIS TIME. Addendum: 10/24/19 at 1849 by [facility] abdominal pain* not arm pain
--- NOTE | 2019-10-24 18:13 | NUR ---
PT TAKEN TO CT VIA WHEELCHAIR.
--- NOTE | 2019-10-24 18:28 | NUR ---
pt brought back from CT and was not able to progress with the CT due to IV site leaking when pushing dye. IV site fixed and patent without leaks. CT notified to return.
--- NOTE | 2019-10-24 18:44 | NUR ---
pt taken to CT via wheelchair.
--- NOTE | 2019-10-24 18:47 | NUR ---
PT TAKEN TO CT AT THIS TIME
[2019-10-24] MEDS ORDERED: MORPHINE SULFATE 4 MG/ML SYR IVP ONE (19:00)
--- NOTE | 2019-10-24 19:32 | NUR ---
PT RETURN FROM CT
--- NOTE | 2019-10-24 20:39 | NUR ---
Dr. Buchanan examining patient.
[2019-10-24] MEDS ORDERED: LORazepam 2 MG/ML VIAL IVP ONE (21:15)
[2019-10-24] MEDS ORDERED: HYDROcodone/APAP 5/325 MG 1 TAB TAB PO PRN (21:40)
[2019-10-24] MEDS ORDERED: ONDANSETRON 4 MG/2 ML VIAL IVP PRN (21:40)
[2019-10-24] MEDS ORDERED: ACETAMINOPHEN 325 MG TAB PO PRN (21:40)
--- NOTE | 2019-10-24 21:40 | NUR ---
PT IS RESTING IN BED, RESP EVEN AND UNLABORED. AROUSABLE BY VOICE STIMULI. VSS. ALL NEEDS MET AT THIS TIME
[2019-10-24 22:09] VITALS: BP 131/77
--- NOTE | 2019-10-24 22:09 | NUR ---
RECEIVED PATIENT FROM ED. PATIENT WAS TRANSPORTED BY ED NURSE IN WHEELCHAIR. RECEIVED BEDSIDE REPORT. PT IV SITE ASSESSED INTACT AND PATENT. PT INITIAL VIALS: T: 100.2 P: 109 R: 19 B/P: 131/77 SPO2: 99% ON RA. PT COMPLAINED OF 5/10 PAIN. PT WAS MEDIATED IN ED FOR PAIN. PT STATES PREVIOUS PAIN LEVEL WAS 10/10 PAIN IS NOW 5/10. PATIENT ORIENTED TO ROOM. SAFETY MEASURES IN PLACE CALL LIGHT WITHIN REACH.
--- NOTE | 2019-10-24 22:13 | NUR ---
Patient will be admitted to care of [facility]. Admited to MED/SURG. Will go to room 111B. Belongings list completed. Report to SCOTT MENDEZ.
[2019-10-24] MEDS: DEXT 5% /NACL 0.9% 1,000 ML IV SCH (23:50)
--- NOTE | 2019-10-25 00:02 | NUR ---
STARTED IVF PER MD ORDER. IV SITE ASSESSED FOR PATENCY. IV SITE PATENT AND INFUSING WITHOUT DIFFICULTY. WILL CONTINUE TO MONITOR
[2019-10-25] MEDS: MORPHINE SULFATE 4 MG/ML SYR IVP PRN ×2 (01:02→11:40)
--- NOTE | 2019-10-25 01:02 | NUR ---
PT COMPLAINED OF 8/10 PAIN IN ABDOMEN. ADMINISTERED PRN MORPHINE PER MD ORDER. PT TOLERATED WELL. NO SIGNS OF DISTRESS NOTED. RESPIRATIONS EVEN AND UNLABORED. SAFETY MEASURES IN PLACE CALL LIGHT WITHIN REACH WILL CONTINUE TO MONITOR
--- NOTE | 2019-10-25 02:02 | NUR ---
REASSESSED PTS PAIN LEVEL. PT RESTING EASILY AWOKEN. PT STATES MEDICATIONS HELPED TO REDUCE HER PAIN TO A TOLERABLE LEVEL. CALL LIGHT WITHIN REACH .
--- NOTE | 2019-10-25 03:52 | NUR ---
OBTAINED PATIENTS V/S. PT TOLERATED WELL. NO SIGNS OF DISTRESS NOTED. PT DENIES PAIN. WILL CONTINUE TO MONITOR
[2019-10-25 04:00] VITALS: BP 112/57
[2019-10-25] MEDS ORDERED: PIPERACILLIN/TAZOBACTAM 3.375 GM VIAL IV ONE (04:32)
--- NOTE | 2019-10-25 04:43 | NUR ---
ADMINISTERED 0500 MEDICATION TO PATIENT. FIRST DOSE OF ZOSYN. REMAINED AT BEDSIDE TO ASSESS FOR SIGNS OF REACTION. PT TOLERATED ANTIBIOTIC WELL. NO SIGNS OF DISTRESS NOTED. RESPIRATIONS EVEN AND UNLABORED ON RA. SAFETY MEASURES IN PLACE CALL LIGHT WITHIN REACH
[2019-10-25] MEDS ORDERED: PIPERACILLIN/TAZOBACTAM 3.375 GM in DEXTROSE 5% 50 ML IV SCH (05:00)
[2019-10-25 05:23] LABS: BASOPHILS # (AUTO) 0.1 K/uL (0.00-0.22); BASOPHILS % (AUTO) 1.2 % (0.0-2.0); EOSINOPHILS % (AUTO) 0.5 % (0.0-4.0); HEMATOCRIT 38.2 % (36-48); HEMOGLOBIN 12.5 g/dL (12.0-16.0); LYMPHOCYTES # (AUTO) 1.4 K/uL (2.5-16.5); MEAN CORPUSCULAR HEMOGLOBIN 27 pg (27-31); MEAN CORPUSCULAR HGB CONC 33 g/dL (33-37); MEAN CORPUSCULAR VOLUME 80.8 fL (80-94); MONOCYTES # (AUTO) 0.4 K/uL (0.8-1.0); MONOCYTES % (AUTO) 6.6 % (1.7-9.3); NEUTROPHILS # (AUTO) 4.7 K/uL (1.8-7.7); NEUTROPHILS % (AUTO) 70.7 % (42.2-75.2); PLATELET COUNT (AUTO) 292 K/uL (140-450); RED BLOOD CELL COUNT(AUTO) 4.72 MIL/uL (4.20-5.40); WHITE BLOOD COUNT (AUTO) 6.7 K/uL (4.8-10.8)
[2019-10-25 05:46] LABS: ALBUMIN 3.2 g/dL (3.4-5.0); ANION GAP 11.8 (8-16); CARBON DIOXIDE 27.9 mmol/L (21-32); CREATININE 0.9 mg/dL (0.6-1.3); MAGNESIUM 2.1 mg/dL (1.8-2.4); PHOSPHORUS 4.2 mg/dL (2.5-4.9); POTASSIUM 3.7 mmol/L (3.5-5.1); TOTAL BILIRUBIN 1.2 mg/dL (0.0-1.0)
--- NOTE | 2019-10-25 06:03 | NUR ---
PATIENT HAS BEEN SCREENED AND CATEGORIZED HIGH NUTRITION RISK. PATIENT WILL BE SEEN WITHIN 1-2 DAYS OF ADMISSION. 10/26/19-10/27/19 GALDINO HAYNES MS, RDN
--- NOTE | 2019-10-25 07:21 | NUR ---
ENDORSED PATIENT TO DAYSHIFT NURSE AT THE BEDSIDE FOR CONTINUITY OF CARE. PATIENT IN STABLE CONDITION
--- NOTE | 2019-10-25 07:22 | NUR ---
RECEIVED REPORT FROM FACTORY EXPERT NURSE, SCOTT, FOR CONTINUITY OF CARE. PT IS AA&OX4. RESPIRATIONS ARE EVEN, AND UNLABORED, BREATHING TO RA. R UPPER ARM IV IS PATENT AND INTACT. NPO EXCEPT MEDS. SAFETY MEASURES IN PLACE, CALL LIGHT WITHIN REACH, BED IN LOW POSITION. WILL CONTINUE TO MONITOR.
[2019-10-25 08:00] VITALS: BP 116/65
--- NOTE | 2019-10-25 08:53 | NUR ---
PT COMPLAINED OF 7/10 UPPER ABD PAIN. NORCO WAS ADMINISTERED. WILL REASSESS. SAFETY MEASURES IN PLACE.
--- NOTE | 2019-10-25 09:36 | NUR ---
PT VOMITED AND COMPLAINED OF CONTINUING NAUSEA. PRN ZOFRAN WAS GIVEN IVP. PT STATED THAT SHE IS STILL IN PAIN, AND BELIEVES THAT SHE VOMITED UP THE PAIN MEDICATION PT'S BP WAS TAKEN: 94/52. NO PAIN MEDS WERE READMINISTERED AT THIS TIME, DUE TO LOW BP. MEDICATION EDUCATION GIVEN, RISKS WERE EXPLAINED, PT VERBALIZED UNDERSTANDING. WILL CONTINUE TO MONITOR.
[2019-10-25] MEDS: DEXT 5% /NACL 0.9% 1,000 ML IV SCH (11:41)
--- NOTE | 2019-10-25 13:30 | NUR ---
PT VERBALIZES THAT SHE WANTS TO LEAVE [facility], TO [facility]. WILL PAGE DR QUIROGA. CHARGE NURSE IS INFORMED. WILL CONTINUE TO MONITOR.
--- NOTE | 2019-10-25 13:45 | NUR ---
PT STATED THAT SHE HAS A PERSONAL EMERGENCY AND NEEDS TO LEAVE THE HOSPITAL. SHE SAID THAT SHE HAS NO ONE TO CARE FOR HER INFANT DAUGHTER. THE PT WAS MADE AWARE OF THE RISKS ASSOCIATED WITH LEAVING AGAINST MEDICAL ADVISE, BUT STATED THAT SHE NEEDED TO LEAVE AT THIS TIME, AND WOULD RETURN FOR MEDICAL CARE WHEN SHE WAS ABLE. DR. QUIROGA WAS PAGED TO NOTIFY HIM OF THE PT'S DECISION. PT'S IV WAS REMOVED. ALL BELONGINGS WERE IN HER POSSESSION. AGRICULT[employer] EQUIPMENT SALESPERSON ESCORTED PT OUT TO THE LOBBY.
== END 2019-10-25 13:45 | disposition left against medical advice (07) | DRG 813 ==
LOC: MED 16:30 → MTU 22:02
PROVIDERS: ADMIT Internal Medicine Pulmonary Disease; ATTEND Internal Medicine Pulmonary Disease
DX: T85.520A Displacement of bile duct prosthesis, initial encounter (principal); K83.1 Obstruction of bile duct; K81.9 Cholecystitis, unspecified; E86.9 Volume depletion, unspecified; Z90.49 Acquired absence of other specified parts of digestive tract; Y83.8 Other surgical procedures as the cause of abnormal reaction of the patient, or of later complication, without mention of misadventure at the time of the procedure; Y92.89 Other specified places as the place of occurrence of the external cause
CPT/HCPCS: 36415; 80053; 81003; 82150; 83690; 83735; 84100; 85025; 87081; 96361; 96374; 96375; 99285; J1885; J2060; J2270; J2405; J2543; J7042; J7060; Q9967

== ENCOUNTER 2020-03-26 10:23 | Inpatient (IN) | payer OTHER ==
[~2020-03-26] VITALS: Ht 172.7 cm; Wt 105.7 kg
[2020-03-26 10:26] VITALS: BP 150/86
[2020-03-26] MEDS ORDERED: NACL 0.9% 1,000 ML IV ONE ×2 (10:45→12:40)
[2020-03-26] MEDS ORDERED: ONDANSETRON 4 MG/2 ML VIAL IVP ONE (10:45)
[2020-03-26] MEDS ORDERED: MORPHINE SULFATE 4 MG/ML SYR IVP ONE (10:45)
[2020-03-26 11:06] LABS: BASOPHILS % (AUTO) 0.2 % (0.0-2.0); EOSINOPHILS # (AUTO) 0.2 K/uL (0-0.4); EOSINOPHILS % (AUTO) 1.3 % (0.0-4.0); HEMATOCRIT 43.5 % (36-48); HEMOGLOBIN 14.6 g/dL (12.0-16.0); LYMPHOCYTES # (AUTO) 1.5 K/uL (2.5-16.5); LYMPHOCYTES % (AUTO) 9.8 % (20.5-51.1); MEAN CORPUSCULAR HEMOGLOBIN 28 pg (27-31); MEAN CORPUSCULAR HGB CONC 34 g/dL (33-37); MONOCYTES # (AUTO) 0.9 K/uL (0.8-1.0); MONOCYTES % (AUTO) 6.2 % (1.7-9.3); NEUTROPHILS # (AUTO) 12.3 K/uL (1.8-7.7); NEUTROPHILS % (AUTO) 82.5 % (42.2-75.2); PLATELET COUNT (AUTO) 332 K/uL (140-450); RED CELL DISTRIBUTION WIDTH 13.7 % (11.6-13.7)
--- NOTE | 2020-03-26 11:12 | NUR ---
25 Y/O FEMALE C/O RUQ PAIN X3 DAYS W/ N/V/D. PATIENT STATES SHE HAS HAD HER GALLBLADDER REMOVED, BUT HAS BEEN TOLD THAT SHE HAS A GALLSTONE STUCK IN HER LIVER, AND BELIEVES THATS WHY SHE IS HAVING THE PAIN. SCLERA APPEARS SLIGHTLY YELLOW, SKIN IS APPROPRIATE FOR ETHNICITY. RESP EVEN AND UNLABORED. PATIENT REPORTS EMESIS WAS YELLOW, LAST EPISODE OF EMESIS WAS YESTERDAY. RUQ PAIN 10/10 UNRELIEVED BY NORCO 5MG.
--- NOTE | 2020-03-26 11:13 | NUR ---
PATIENT UNABLE TO PROVIDE URINE AT THIS TIME
--- NOTE | 2020-03-26 11:13 | NUR ---
US AT BEDSIDE
[2020-03-26 11:21] LABS: ALBUMIN 4.1 g/dL (3.4-5.0); ANION GAP 16.6 (8-16); CARBON DIOXIDE 24.4 mmol/L (21-32); CREATININE 0.6 mg/dL (0.6-1.3); TOTAL BILIRUBIN 1.7 mg/dL (0.0-1.0)
--- NOTE | 2020-03-26 11:25 | NUR ---
PATIENT C/O OF INCREASED PAIN, PASQUALE MEDINA MADE AWARE
[2020-03-26] MEDS ORDERED: MORPHINE SULFATE 10 MG/ML VIAL IVP ONE (11:40)
[2020-03-26] MEDS ORDERED: cefTRIAXone 1,000 MG VIAL ONE (12:09)
--- NOTE | 2020-03-26 12:16 | NUR ---
PATIENT STATES THAT PAIN IS TOLERABLE AND AT A LEVEL 5/10
[2020-03-26] MEDS ORDERED: ACETAMINOPHEN 325 MG TAB PO PRN (12:25)
--- NOTE | 2020-03-26 12:31 | NUR ---
pt states she is still unable to provide urine at this time
--- NOTE | 2020-03-26 13:10 | NUR ---
RECEIVED REPORT FROM ER NURSE MAE. PATIENT WAS TRANSFERRED TO THE FLOOR WITH CHAVO. CC WITH RUQ ABD PAIN X 3 DAYS. DX WITH CHOLEDOCHOLITHIASIS/CHOLEANGITIS. PATIENT IS AAOX4. ABLE TO MAKE NEEDS KNOWN. NPO STATUS. SKIN WARM AND DRY, INTACT. PATIENT HAD GALLBLADDER REMOVED IN JULY 2019. IV SITE RAC 20 G, RUNNING WITH BOLUS NS. ON TELE MONITOR. ADMISSION ORDER RECEIVED. PLAN OF CARE DISCUSSED WITH THE PATIENT. SAFETY MEASURES IN PLACE. WILL CONTINUE TO MONITOR.
--- NOTE | 2020-03-26 13:19 | NUR ---
Patient will be admitted to care of [facility]. Admited to TELE. Will go to room 104B. Belongings list completed. Report to CHAO MENDEZ.
[2020-03-26] MEDS: DEXT 5% /NACL 0.9% 1,000 ML IV SCH ×2 (13:30→22:39)
--- NOTE | 2020-03-26 14:10 | NUR ---
COVID TEST COLLECTED BILATERAL NOSTRIL, SENT TO LAB.
[2020-03-26 14:24] LABS: BILIRUBIN,URINE NEGATIVE (NEGATIVE); BLOOD, URINE NEGATIVE (NEGATIVE); LEUKOCYTE ESTERASE ,URINE 1+ (NEGATIVE); NITRITE, URINE NEGATIVE (NEGATIVE); PH,URINE 6.5 (5.0-9.0); UGLUCOSE NEGATIVE (NEGATIVE)
[2020-03-26 14:45] LABS: APPEARANCE,URINE HAZY (CLEAR); COLOR,URINE STRAW (YELLOW)
[2020-03-26 14:47] LABS: RBC,URINE NONE SEEN /HPF (0-5); WBC,URINE 0-5 /HPF (0-5)
--- NOTE | 2020-03-26 15:24 | NUR ---
DISCHARGE PLANNING: THIS IS A 25 Y/O FEMALE PATIENT FROM HOME, WHO CAME IN DUE TO RUQ ABDOMINAL PAIN. PAST MEDICAL AND SURGICAL HISTORY INCLUDE HEART MURMUR, KIDNEY STONE AND CHOLECYSTECTOMY. INITIAL DIAGNOSIS OF CHOLANGITIS. CURRENT LABS INCLUDE WBC 15.0, H/H 14.6/43.5, NA/K 139/4.0, BUN/CREA 11/0.6, HARRISON/LIPASE 59/95. ABDOMINAL US SHOWED INTERVAL CHOLECYSTECTOMY, BILIARY STENT. GI CONSULT IN PLACE. ON ZOSYN. DC PLAN BACK TO HOME ONCE STABLE.
[2020-03-26 16:00] VITALS: BP 121/79
[2020-03-26] MEDS: HYDROmorphone PFS 2 MG/ML SYR IVP PRN ×2 (16:18→20:31)
[2020-03-26] MEDS: ONDANSETRON 4 MG/2 ML VIAL IVP PRN ×2 (16:18→19:57)
--- NOTE | 2020-03-26 16:18 | NUR ---
ZOFRAN ADMINISTERED VIA IVP FOR NAUSEA AND VOMITING. DILAUDID ADMINISTERED VIA IVP FOR RUQ PAIN, 8/10. EDUCATION PROVIDED, PATIENT TOLERATED WELL. SAFETY MEASURES IN PLACE, WILL CONTINUE TO MONITOR.
[2020-03-26] MEDS ORDERED: INSULIN LISPRO SLIDING SCALE 100 UNITS/ML VIAL SUBQ PRN (16:45)
[2020-03-26] MEDS ORDERED: DEXTROSE 50% 50 ML SYR IVP PRN (16:45)
[2020-03-26] MEDS: PIPERACILLIN/TAZOBACTAM 3.375 GM in DEXTROSE 5% 50 ML IV SCH (18:04)
--- NOTE | 2020-03-26 18:09 | NUR ---
IV ZOSYN ADMINISTERED VIA IVPB, EDUCATION PROVIDED, PATIENT TOLERATED WELL. PATIENT DENIES PAIN, NAUSEATED OR VOMITING. TEMP 97.6. NO ACUTE DISTRESS NOTED, CALL LIGHT WITHIN REACH, WILL CONTINUE TO MONITOR.
--- NOTE | 2020-03-26 19:30 | NUR ---
ENDORSED PATIENT TO [employer] ART TEACHER NURSE ENRIKE FOR CONTINUITY OF CARE. PATIENT IN STABLE CONDITION.
--- NOTE | 2020-03-26 20:00 | NUR ---
RECEIVED REPORT FROM DAY NURSE AT 1900. VSS. MED FOR ABD PAIN WITH DILAUDID IVP ORDERED W/ GOOD EFFECT NOTED. PRE MEDICATED FOR NAUSEA WITH ZOFRAN IVP. IV INTACT/PATENT/INFUSING ORDERED. SR/ST ON TELE. NPO STATUS MAINTAINED. SAFETY MAINTAINED. CB IN REACH. WILL CONT TO MONITOR PT STATUS.
[2020-03-26] MEDS: BLOOD GLUCOSE MONITORING 1 DEV DEV FS SCH (21:10)
[2020-03-26 21:16] VITALS: BP 109/62
[2020-03-26] MEDS: HYDROcodone/APAP 5/325 MG 1 TAB TAB PO PRN (21:53)
[2020-03-27] VITALS: BP 95/42
[2020-03-27] MEDS: PIPERACILLIN/TAZOBACTAM 3.375 GM in DEXTROSE 5% 50 ML IV SCH ×3 (00:33→12:30)
[2020-03-27] MEDS: HYDROmorphone PFS 2 MG/ML SYR IVP PRN ×3 (01:47→13:26)
[2020-03-27] MEDS: DEXT 5% /NACL 0.9% 1,000 ML IV SCH (02:30)
[2020-03-27] MEDS: HYDROcodone/APAP 5/325 MG 1 TAB TAB PO PRN (03:44)
[2020-03-27 04:40] VITALS: BP 92/60
[2020-03-27] MEDS: BLOOD GLUCOSE MONITORING 1 DEV DEV FS SCH (06:28)
--- NOTE | 2020-03-27 06:51 | NUR ---
PATIENT HAS BEEN SCREENED AND CATEGORIZED HIGH NUTRITION RISK. PATIENT WILL BE SEEN WITHIN 1-2 DAYS OF ADMISSION. 03/27/20-03/30/07 GALDINO HAYNES MS, RDN
--- NOTE | 2020-03-27 06:52 | NUR ---
BLOOD GLUCOSE 111. NPO STATUS MAINTAINED. MED FOR ABD PAIN W/ DILAUDID 2MG IVP W/ GOOD EFFECT NOTED. DENIES ANY N/V. IV INTACT/PATENT. SR ON TELE. REPORT TO BE GIVEN TO ONCOMING DAY NURSE AT 0700.
--- NOTE | 2020-03-27 07:15 | NUR ---
RECEIVED REPORT FROM C[employer] W[employer]ER MACHINE OPERATOR NURSE FOR CONTINUITY OF CARE. PATIENT RESTING IN RIGHT LATERAL POSITION, NO ACUTE DISTRESS NOTED. SKIN WARM AND DRY. IV SITE RIGHT AC 20 G INTACT AND PATENT. IV INFUSING D5 NS @100 CC/HR. KEEP NPO FOR ERCP TODAY. SAFETY MEASURES IN PLACE, BED IN LOW POSITION, CALL LIGHT WITHIN REACH. WILL CONTINUE TO MONITOR.
[2020-03-27 07:20] LABS: BASOPHILS % (AUTO) 0.4 % (0.0-2.0); EOSINOPHILS # (AUTO) 0.3 K/uL (0-0.4); HEMATOCRIT 37.5 % (36-48); HEMOGLOBIN 12.4 g/dL (12.0-16.0); LYMPHOCYTES # (AUTO) 1.7 K/uL (2.5-16.5); MEAN CORPUSCULAR HEMOGLOBIN 28 pg (27-31); MEAN CORPUSCULAR HGB CONC 33 g/dL (33-37); MEAN CORPUSCULAR VOLUME 83.7 fL (80-94); MONOCYTES # (AUTO) 0.8 K/uL (0.8-1.0); NEUTROPHILS # (AUTO) 3.8 K/uL (1.8-7.7); NEUTROPHILS % (AUTO) 57.6 % (42.2-75.2); PLATELET COUNT (AUTO) 286 K/uL (140-450); RED BLOOD CELL COUNT(AUTO) 4.48 MIL/uL (4.20-5.40); RED CELL DISTRIBUTION WIDTH 13.9 % (11.6-13.7); WHITE BLOOD COUNT (AUTO) 6.5 K/uL (4.8-10.8)
[2020-03-27 07:29] LABS: PROTHROMBIN TIME 10.4 secs (10.8-13.4)
[2020-03-27 07:33] LABS: ALBUMIN 3.1 g/dL (3.4-5.0); ANION GAP 12.1 (8-16); CARBON DIOXIDE 25.3 mmol/L (21-32); CREATININE 0.7 mg/dL (0.6-1.3); POTASSIUM 3.4 mmol/L (3.5-5.1); TOTAL BILIRUBIN 2.7 mg/dL (0.0-1.0)
[2020-03-27 08:00] VITALS: BP 120/47
--- NOTE | 2020-03-27 08:33 | NUR ---
ER NURSE CAME TO COMMERCIAL FINANCE ANALYST THE PATIENT TO HAVE ERCP PROCEDURE.
[2020-03-27] MEDS ORDERED: KETOROLAC 15 MG/ML VIAL IVP PRN (08:40)
[2020-03-27] MEDS ORDERED: KCL 20 MEQ/WATER INJ PREMIX 100 ML IV SCH (09:00)
--- NOTE | 2020-03-27 09:45 | NUR ---
PATIENT WAS BROUGHT BACK TO FLOOR S/P ERCP. V/S CHECKED, AWAKE, AAOX4. NO ACUTE DISTRESS NOTED, WILL CONTINUE TO CLOSELY MONITOR.
[2020-03-27] MEDS ORDERED: HYDROmorphone 1 MG/ML AMP IVP PRN (11:05)
[2020-03-27] MEDS ORDERED: BLOOD GLUCOSE MONITORING 1 DEV DEV FS ONE (11:05)
[2020-03-27] MEDS ORDERED: ONDANSETRON 4 MG/2 ML VIAL IVP PRN (11:05)
--- NOTE | 2020-03-27 12:40 | NUR ---
IV ZOSYN ADMINISTERED, EDUCATION PROVIDED, PATIENT VERBALIZED UNDERSTANDING. PATIENT IN SITTING POSITION, HAVING LUNCH. WILL CONTINUE TO MONITOR.
--- NOTE | 2020-03-27 13:44 | NUR ---
TORADOL ADMINISTERED VIA IVP, PATIENT TOLERATED WELL. BP 92/58. SAFETY MEASURES IN PLACE, WILL CONTINUE TO MONITOR.
--- NOTE | 2020-03-27 14:40 | NUR ---
DISCHARGE INSTRUCTION GIVEN, DISCHARGE PAPER SIGNED, ALL BELONGINGS AT BEDSIDE. PT DENIES PAIN AT THIS TIME. WILL SEND PATIENT TO LOBBY WHEN PT'S ARRIVES.
--- NOTE | 2020-03-27 14:48 | NUR ---
TRANSFERRED PATIENT TO THE FRONT LOBBY, PICKED UP BY HER . SAID YESSENIA. ALL TEAM MEMBERS NOTIFIED.
== END 2020-03-27 14:45 | disposition home or self-care (01) | DRG 720 ==
LOC: MED 10:23 → MTU 12:28
PROVIDERS: ADMIT Internal Medicine; ATTEND Internal Medicine
PROC: 0FPB8DZ Removal of Intraluminal Device from Hepatobiliary Duct, Via Natural or Artificial Opening Endoscopic (ICD-10-PCS; 2020-03-27)
PROC: BF101ZZ Fluoroscopy of Bile Ducts using Low Osmolar Contrast (ICD-10-PCS; 2020-03-27)
PROC: 0FC98ZZ Extirpation of Matter from Common Bile Duct, Via Natural or Artificial Opening Endoscopic (ICD-10-PCS; principal; 2020-03-27 08:30)
DX: A41.9 Sepsis, unspecified organism (principal); K80.31 Calculus of bile duct with cholangitis, unspecified, with obstruction; F12.90 Cannabis use, unspecified, uncomplicated; R79.89 Other specified abnormal findings of blood chemistry; Z20.828 Contact with and (suspected) exposure to other viral communicable diseases; Z90.49 Acquired absence of other specified parts of digestive tract; Z79.891 Long term (current) use of opiate analgesic; Z87.442 Personal history of urinary calculi
CPT/HCPCS: 36415; 74330; 76705; 80053; 81001; 82150; 82948; 83036; 83605; 83690; 85025; 85610; 85730; 87040; 87081; 87086; 96361; 96365; 96375; 96376; 99285; C1769; J0696; J1170; J1885; J2270; J2405; J2543; J7042; J7060; Q0092

== ENCOUNTER 2023-02-13 20:25 | Emergency (ER) | payer OTHER ==
[~2023-02-13] VITALS: Ht 172.7 cm; Wt 109.3 kg
[2023-02-13 20:32] VITALS: BP 124/60; PULSE 89; RESP 17; TEMP 97.6; O2SAT 99
--- NOTE | 2023-02-13 20:35 | NUR ---
TO LOBBY A/W BED AMBULATORY
[2023-02-13] MEDS ORDERED: AMOX-1230 PO (21:37)
[2023-02-13 21:44] VITALS: BP 124/60; PULSE 89; RESP 17; TEMP 97.6; O2SAT 99
--- NOTE | 2023-02-13 21:44 | NUR ---
Patient discharged with v/s stable. Written and verbal after care instructions given and explained. Patient alert, oriented and verbalized understanding of instructions. Ambulatory with steady gait. All questions addressed prior to discharge. ID band removed. Patient advised to follow up with PMD. Rx of AMOX/CLAV given. Patient educated on indication of medication including possible reaction and side effects. Opportunity to ask questions provided and answered.
== END 2023-02-13 21:44 | disposition home or self-care (01) ==
LOC: MED 20:25
DX: H66.91 Otitis media, unspecified, right ear (principal); E11.9 Type 2 diabetes mellitus without complications; Z79.899 Other long term (current) drug therapy; Z79.2 Long term (current) use of antibiotics
CPT/HCPCS: 99283